=== PATIENT | female | born 1960 | race African-American/Black ===

== ENCOUNTER 2017-08-24 11:05 | Inpatient (IN) | payer MEDICARE, OTHER ==
[~2017-08-24] VITALS: Ht 165.1 cm; Wt 121.2 kg
[2017-08-24] MEDS ORDERED: MULT1TAB52 PO (12:46)
[2017-08-24] MEDS ORDERED: LORA1TAB PO (12:46)
[2017-08-24] MEDS ORDERED: OXYC5CAP PO (12:46)
[2017-08-24] MEDS ORDERED: BUDE10.2 IH (12:46)
[2017-08-24] MEDS ORDERED: CETI10TA16 PO (12:46)
[2017-08-24] MEDS ORDERED: ATOR40TA59 PO (12:46)
[2017-08-24] MEDS ORDERED: CHOL10003 PO (12:46)
[2017-08-24] MEDS ORDERED: ASPI-612 PO (12:46)
[2017-08-24] MEDS ORDERED: TRAZ-90 PO (12:46)
[2017-08-24] MEDS ORDERED: HYDR25TA9 PO (12:46)
[2017-08-24] MEDS ORDERED: LAMO100T PO (12:46)
[2017-08-24] MEDS ORDERED: AMLO10TA2 PO (12:46)
[2017-08-24] MEDS ORDERED: FLUT16SP21 NS (12:46)
[2017-08-24] MEDS ORDERED: VITA200C28 PO (12:46)
[2017-08-24] MEDS ORDERED: METO50TA6 PO (12:46)
[2017-08-24] MEDS ORDERED: TIZA4TAB PO (12:46)
[2017-08-24] MEDS ORDERED: METF850T2 PO (12:46)
[2017-08-24] MEDS ORDERED: LAMO200T2 PO (12:46)
[2017-08-24] MEDS ORDERED: POLY17PO5 PO (12:46)
[2017-08-24] MEDS ORDERED: GABA600T2 PO (14:07)
[2017-08-24] MEDS ORDERED: GABA-586 PO (14:08)
[2017-08-24] MEDS ORDERED: VENL75TA PO (14:08)
[2017-08-24] MEDS ORDERED: DOCU100C28 PO (14:09)
[2017-08-24] MEDS ORDERED: HYDR-971 PO (14:10)
[2017-08-24] MEDS ORDERED: LISI40TA PO (14:11)
[2017-08-24] MEDS ORDERED: NAPR-683 PO (14:12)
[2017-08-24] MEDS ORDERED: RIVA10TA PO (14:12)
[2017-08-24] MEDS ORDERED: BUPR150T8 PO (14:13)
[2017-08-24] MEDS ORDERED: SULF1TAB24 PO (14:15)
[2017-08-24] MEDS ORDERED: IPRA0.2S5 NEB (14:19)
[2017-08-24 14:41] VITALS: BP 135/83
[2017-08-24] MEDS ORDERED: POLYETHYLENE GLYCOL 3350 17 GM PACKET. PO PRN (16:15)
[2017-08-24] MEDS ORDERED: IPRATROPIUM BROMIDE 0.5 MG/2.5 ML NEBU. NEB PRN (16:15)
[2017-08-24] MEDS: buPROPion SR 150 MG TABLET.SA PO SCH (17:00)
[2017-08-24] MEDS: metFORMIN 850 MG TABLET PO SCH (17:05)
[2017-08-24] MEDS: LORazepam 1 MG TABLET PO PRN (17:06)
[2017-08-24] MEDS: NICOTINE 14MG PATCH. TD SCH (17:07)
[2017-08-24] MEDS: oxyCODONE IR 5 MG TABLET PO PRN (17:11)
[2017-08-24] MEDS: tiZANidine 4 MG TABLET. PO PRN (17:30)
[2017-08-24] MEDS: BUDESONIDE 0.5 MG/2 ML NEBU NEB SCH (20:00)
[2017-08-24] MEDS: ALBUTEROL SULFATE 2.5 MG/3 ML NEBU. NEB SCH (20:00)
[2017-08-24] MEDS: HYDROcodone/APAP 5/325MG 1 TAB TABLET PO PRN (20:14)
[2017-08-24] MEDS: SMZ/TMP 800/160MG TABLET. PO SCH (20:14)
[2017-08-24] MEDS: NAPROXEN 500 MG TABLET PO SCH (20:15)
[2017-08-24] MEDS: ATORVASTATIN CALCIUM 20 MG TABLET PO SCH (20:15)
[2017-08-24] MEDS: METOPROLOL TART IMMED RELEASE 50 MG TABLET PO SCH (20:16)
[2017-08-24 20:17] VITALS: BP 141/89
[2017-08-24] MEDS: GABAPENTIN 300 MG CAPSULE. PO SCH (20:17)
[2017-08-24] MEDS: lamoTRIgine 100 MG TABLET. PO SCH (20:17)
[2017-08-24] MEDS: traZODone 100 MG TABLET. PO PRN (20:18)
[2017-08-24] MEDS ORDERED: NON FORMULARY ITEM (Budesonide/Formoterol Fumarate (Symbicort 160-4.5 Mcg Inhaler) 1 PUFF) IH SCH (21:00)
[2017-08-25] MEDS ORDERED: TIOT18CA IH (04:52)
[2017-08-25 05:19] VITALS: BP 136/89
[2017-08-25] MEDS: oxyCODONE IR 5 MG TABLET PO PRN ×2 (05:20→14:10)
[2017-08-25 05:27] LABS: BASO % 1 % (0-3); EOS # 0.3 x10^3/uL (0.0-0.7); EOS % 5 % (0-3); HEMATOCRIT 29.6 % (36.0-47.0); HEMOGLOBIN 9.9 g/dL (12.0-15.5); LYMPH # 1.3 x10^3/uL (1.0-4.8); LYMPH % 17 % (24-48); MEAN CORPUSCULAR HEMOGLOBIN 32 pg (25-35); MEAN CORPUSCULAR HGB CONC 34 g/dL (31-37); MEAN CORPUSCULAR VOLUME 97 fL (79-100); MONO # 1.1 x10^3/uL (0.0-1.1); MONO % 14 % (0-9); NEUT # 4.8 x10^3uL (1.8-7.7); NEUT % 64 % (31-73); PLATELET COUNT 223 x10^3/uL (140-400); RED BLOOD COUNT 3.07 x10^6/uL (3.50-5.40); RED CELL DISTRIBUTION WIDTH 14.1 % (11.5-14.5); WHITE BLOOD COUNT 7.5 x10^3/uL (4.0-11.0)
[2017-08-25 05:36] LABS: ALBUMIN 2.7 g/dL (3.4-5.0); ALBUMIN/GLOBULIN RATIO 0.6 (1.0-1.7); CALCIUM 9.7 mg/dL (8.5-10.1); CREATININE 0.9 mg/dL (0.6-1.0); GFR 64.1; TOTAL BILIRUBIN 0.3 mg/dL (0.2-1.0); TOTAL PROTEIN 6.9 g/dL (6.4-8.2)
[2017-08-25] MEDS: ALBUTEROL SULFATE 2.5 MG/3 ML NEBU. NEB SCH ×3 (08:00→16:00)
[2017-08-25] MEDS: BUDESONIDE 0.5 MG/2 ML NEBU NEB SCH (08:00)
[2017-08-25 08:05] LABS: % ATYL 3 % (0-0); % BANDS 3 % (0-9); % BASOS 1 % (0-3); % EOS 5 % (0-5); % LYMPHS 15 % (24-48); % MONOS 11 % (0-10); % SEGS 62 % (35-66); PLT ESTIMATE ADEQUATE (ADEQUATE); TARGET CELLS FEW
[2017-08-25 08:06] LABS: TOXIC VACUOLATION PRESENT
[2017-08-25] MEDS: metFORMIN 850 MG TABLET PO SCH ×2 (08:32→17:23)
[2017-08-25] MEDS: buPROPion SR 150 MG TABLET.SA PO SCH ×2 (08:32→12:36)
[2017-08-25] MEDS: lamoTRIgine 100 MG TABLET. PO SCH ×3 (08:33→20:22)
[2017-08-25] MEDS: CETIRIZINE HCL 10 MG TABLET PO SCH (08:33)
[2017-08-25] MEDS: VITAMIN E. 400 UNIT CAPSULE. PO SCH (08:33)
[2017-08-25] MEDS: LISINOPRIL 20 MG TABLET PO SCH (08:33)
[2017-08-25] MEDS: NAPROXEN 500 MG TABLET PO SCH ×2 (08:33→20:25)
[2017-08-25] MEDS: METOPROLOL TART IMMED RELEASE 50 MG TABLET PO SCH ×2 (08:34→20:23)
[2017-08-25] MEDS: SMZ/TMP 800/160MG TABLET. PO SCH ×2 (08:34→20:22)
[2017-08-25] MEDS: amLODIPine BESYLATE 10 MG TABLET PO SCH (08:34)
[2017-08-25] MEDS: hydroCHLOROthiazide 25 MG TABLET PO SCH (08:34)
[2017-08-25] MEDS: CHOLECALCIFEROL (VITAMIN D3) 1,000 UNIT TABLET PO SCH (08:34)
[2017-08-25] MEDS: HYDROcodone/APAP 5/325MG 1 TAB TABLET PO PRN ×2 (08:34→18:27)
[2017-08-25] MEDS: MULTIVITAMIN with MINERAL TABLET. PO SCH (08:34)
[2017-08-25] MEDS: GABAPENTIN 300 MG CAPSULE. PO SCH ×3 (08:34→20:23)
[2017-08-25] MEDS: ASPIRIN ENTERIC COATED 81 MG TABLET.DR. PO SCH (08:34)
[2017-08-25] MEDS: VENLAFAXINE 75 MG TABLET. PO SCH (08:35)
[2017-08-25] MEDS: NICOTINE 14MG PATCH. TD SCH (08:35)
--- NOTE | 2017-08-25 12:56 | HP ---
ADMIT DATE: 08/25/2017 HISTORY OF PRESENT ILLNESS: The patient is a 57-year-old -Citizen Of The [place] female patient who apparently was admitted to [facility] with severe right knee pain and she apparently has osteoarthritis of bilateral knees. She underwent left total knee arthroplasty in 01/2017 and after failing conservative management as an outpatient, she presented on 08/16/2017 and underwent right total knee arthroplasty without complication. The patient was admitted to swing bed to continue the process of rehabilitation and continue pain management and DVT prophylaxis. On questioning her, she continued to obviously complain of pain in her knee and also her back. PAST MEDICAL HISTORY: Her past medical history is significant for type 2 diabetes mellitus, hypertension, obesity, posttraumatic stress disorder, borderline personality disorder, depression, anxiety, hyperlipidemia, insomnia, reactive airway disease, allergic rhinitis, chronic constipation, chronic pain syndrome. She has a history of kidney stones, history of uterine cancer, status post hysterectomy and radiation therapy. PAST SURGICAL HISTORY: Her past surgical history is significant for left total knee arthroplasty in 01/2017, lumbar decompressive surgery with instrumented fusion in 1996 with additional low back surgery in 2006, left knee arthroscopy in 2014, history of hysterectomy in 2015, and tonsillectomy in 1972. ALLERGIES: SHE IS ALLERGIC TO CODEINE, MORPHINE, METHADONE, CYCLOBENZAPRINE, SIMVASTATIN, AND ABILIFY. FAMILY HISTORY: Her father had obsessive compulsive disorder. Mother had coronary artery disease and myocardial infarction. SOCIAL HISTORY: The patient lives in [place]. She is disabled due to psychiatric condition. She has [id number] history of smoking, but quit smoking about a year ago. She rarely drinks alcohol and no illicit drug use. REVIEW OF SYSTEMS: As per history of present illness. MEDICATIONS: She is currently on following medications: She is on amlodipine 10 mg once a day, aspirin 81 mg once a day, atorvastatin calcium 40 mg at bedtime, Wellbutrin SR 150 mg twice a day, cetirizine 10 mg once a day, cholecalciferol 1000 international units once a day, Flonase 2 sprays to each nostril once a day, gabapentin 600 mg at bedtime, gabapentin 300 mg twice a day, hydrochlorothiazide 25 mg once a day, hydrocodone/apap 5/325 two tablets every 4 hours as needed, ipratropium bromide 0.2 mg in 1 mL solution by nebulizer 4 times a day, lamotrigine 100 mg with breakfast, lamotrigine 200 mg at bedtime, lisinopril 40 mg once a day, lorazepam 1 mg 4 times a day, metformin 850 mg p.o. b.i.d. with meals. She is on Metoprolol Tartrate 50 mg p.o. b.i.d., multivitamin 1 tablet once a day, naproxen 500 mg twice a day, oxycodone 5 mg every 4 hours as needed, polyethylene glycol 17 grams p.o. daily as needed for constipation. She is on Bactrim DS 1 tablet twice a day for 7 days for urinary tract infection, tiotropium bromide for Spiriva HandiHaler once a day, and tizanidine 4 mg twice a day, trazodone 100 mg p.o. at bedtime, venlafaxine 75 mg daily, vitamin E 200 units p.o. daily. PHYSICAL EXAMINATION: GENERAL: On examining her, she was sitting comfortably in her wheelchair, in no apparent respiratory distress, slightly pale, but no jaundice, cyanosis, or thyromegaly. No jugular venous distension. No limb edema. VITAL SIGNS: Her heart rate was 79, blood pressure was 136/89, temperature was 97.9, respiratory rate was 18, and oxygen saturation was 96% on room air. HEAD, EYES, EARS, NOSE AND THROAT: Showed normocephalic, atraumatic. NECK: Supple. HEART: Showed normal first and second heart sounds with no gallop, rub, or murmur. CHEST: Clear to auscultation. No crepitation or rhonchi. ABDOMEN: Distended, soft, nontender. No guarding or rigidity. No organomegaly. Hernial orifice is intact. Bowel sounds normal. NEUROLOGIC: She was awake, alert, responding appropriately. Cranial nerves are intact. EXTREMITIES: She moves extremities without difficulty; however, she is mostly bedbound, chair bound. She is able obviously to ambulate with a walker. She is here for pain management, DVT prophylaxis, and to start the process of physical and occupational therapy. LABORATORY DATA: Her lab work this morning showed a serum sodium 142, potassium 4, chloride 104, bicarbonate 32, anion gap of 6, BUN 18, creatinine 0.9, estimated GFR was 64 mL per minute. Her glucose 111, calcium was 9.7. Total bilirubin, AST, ALT, alkaline phosphatase were normal. Total protein was 6.9, albumin 2.7. Her white cell count was 7500, hemoglobin 10, hematocrit 30, MCV 97, and platelet count 223,000. IMPRESSION AND PLAN: 1. In summary, this is a 57-year-old -Citizen Of [place] female patient who is status post right total knee arthroplasty done successfully for severe primary osteoarthritis of the right knee. She is here for pain management, deep venous thrombosis prophylaxis, and start the process of rehabilitation. 2. Type 2 diabetes mellitus, seems to be well controlled on metformin. 3. Hypertension. This seems to be also well controlled on hydrochlorothiazide, amlodipine, and lisinopril. She apparently has also morbid obesity. 4. Multiple psychiatric conditions including posttraumatic stress disorder, borderline personality, chronic depression, and generalized anxiety for which she continues to be on venlafaxine and Wellbutrin as well as trazodone. We will obviously consult Physical and Occupational therapy and follow her closely and adjust the medication as needed. GEREMIAS SANZ MD DR: RAI/chon JOB#: [id number] / [id number]
[2017-08-25] MEDS: LORazepam 1 MG TABLET PO PRN ×2 (14:10→18:28)
[2017-08-25 15:01] VITALS: BP 141/82
[2017-08-25] MEDS: ATORVASTATIN CALCIUM 20 MG TABLET PO SCH (20:22)
[2017-08-25] MEDS: tiZANidine 4 MG TABLET. PO PRN (20:24)
[2017-08-25] MEDS: traZODone 100 MG TABLET. PO PRN (20:24)
[2017-08-25 21:08] VITALS: BP 126/84
[2017-08-26] MEDS ORDERED: IPRATRPIUM/ALBUTEROL 0.5/2.5MG 3 ML NEBU. NEB SCH (08:00)
[2017-08-26 08:39] VITALS: BP 112/70
[2017-08-26] MEDS: oxyCODONE IR 5 MG TABLET PO PRN ×2 (08:43→14:10)
[2017-08-26] MEDS: tiZANidine 4 MG TABLET. PO PRN (08:43)
[2017-08-26] MEDS: SPIRIVA INHALER INH SCH (09:00)
[2017-08-26] MEDS: ASPIRIN ENTERIC COATED 81 MG TABLET.DR. PO SCH (09:32)
[2017-08-26] MEDS: METOPROLOL TART IMMED RELEASE 50 MG TABLET PO SCH ×2 (09:32→20:55)
[2017-08-26] MEDS: lamoTRIgine 100 MG TABLET. PO SCH ×3 (09:34→20:55)
[2017-08-26] MEDS: SMZ/TMP 800/160MG TABLET. PO SCH ×2 (09:34→20:55)
[2017-08-26] MEDS: LISINOPRIL 20 MG TABLET PO SCH (09:34)
[2017-08-26] MEDS: CETIRIZINE HCL 10 MG TABLET PO SCH (09:34)
[2017-08-26] MEDS: GABAPENTIN 300 MG CAPSULE. PO SCH ×3 (09:35→20:56)
[2017-08-26] MEDS: amLODIPine BESYLATE 10 MG TABLET PO SCH (09:35)
[2017-08-26] MEDS: hydroCHLOROthiazide 25 MG TABLET PO SCH (09:36)
[2017-08-26] MEDS: VENLAFAXINE 75 MG TABLET. PO SCH (09:36)
[2017-08-26] MEDS: CHOLECALCIFEROL (VITAMIN D3) 1,000 UNIT TABLET PO SCH (09:36)
[2017-08-26] MEDS: metFORMIN 850 MG TABLET PO SCH ×2 (09:36→17:05)
[2017-08-26] MEDS: VITAMIN E. 400 UNIT CAPSULE. PO SCH (09:36)
[2017-08-26] MEDS: buPROPion SR 150 MG TABLET.SA PO SCH ×2 (09:36→12:08)
[2017-08-26] MEDS: MULTIVITAMIN with MINERAL TABLET. PO SCH (09:36)
[2017-08-26] MEDS: NAPROXEN 500 MG TABLET PO SCH ×2 (09:36→20:56)
[2017-08-26] MEDS: LORazepam 1 MG TABLET PO PRN ×2 (09:37→20:55)
[2017-08-26] MEDS: NICOTINE 14MG PATCH. TD SCH (09:41)
[2017-08-26] MEDS: HYDROcodone/APAP 5/325MG 1 TAB TABLET PO PRN ×2 (12:13→20:55)
--- NOTE | 2017-08-26 15:31 | RAD ---
CT of the abdomen and pelvis without contrast 08/26/2017 Indication: 57-year-old female with a sided abdominal pain. History of stones. Comparison study: None Technique: Multidetector CT imaging of the abdomen and pelvis was obtained without the administration of intravenous contrast. Findings: Visualized lung bases are grossly unremarkable. Liver and gallbladder are unremarkable in appearance. Spleen and adrenal glands and pancreas are grossly unremarkable in appearance. Left-sided nephrolithiasis is noted including a 11 mm nonobstructing stone in the inferior pole the left kidney. There is also a 11 mm ovoid stone in the mid left ureter. Despite the size of the stone no significant left hydronephrosis is identified. The more proximal ureter is only minimally more prominent than the distal left ureter. No right-sided nephrolithiasis or ureteral stone is identified. The bladder is unremarkable in appearance. There is no evidence of bowel obstruction. No evidence of acute inflammatory change involving the bowel is identified. There is a ventral hernia containing a loop nondilated transverse colon. No associated inflammatory changes are identified. The hernia defect measures approximately 3.5 cm x 5.5 cm. No free fluid or free air seen in the abdomen pelvis. Changes following lumbar fusion noted. Bone graft material is seen. No acute osseous changes are identified. Impression: 1. 11 mm stone in the mid left ureter. Minimal prominence of the more proximal left ureter is noted without significant hydronephrosis. There is also 11 mm nonobstructing stone in the inferior pole the left kidney. 2. Ventral hernia containing a loop of transverse colon. No CT evidence of obstruction or inflammatory changes appreciated. PQRS Compliance Statement: One or more of the following individualized dose reduction techniques were utilized for this examination: 1. Automated exposure control 2. Adjustment of the mA and/or kV according to patient size 3. Use of iterative reconstruction technique
[2017-08-26] MEDS: oxyCODONE ER 10 MG TAB.ER.12H PO SCH (15:42)
[2017-08-26 19:23] VITALS: BP 108/57
[2017-08-26] MEDS: ATORVASTATIN CALCIUM 20 MG TABLET PO SCH (20:56)
[2017-08-27] MEDS: metFORMIN 850 MG TABLET PO SCH ×3 (07:47→17:22)
[2017-08-27] MEDS: lamoTRIgine 100 MG TABLET. PO SCH ×3 (07:47→20:02)
[2017-08-27] MEDS: GABAPENTIN 300 MG CAPSULE. PO SCH ×3 (07:47→20:01)
[2017-08-27] MEDS: HYDROcodone/APAP 5/325MG 1 TAB TABLET PO PRN (07:49)
[2017-08-27] MEDS: SPIRIVA INHALER INH SCH (09:00)
[2017-08-27] MEDS: buPROPion SR 150 MG TABLET.SA PO SCH ×2 (09:14→12:58)
[2017-08-27] MEDS: VITAMIN E. 400 UNIT CAPSULE. PO SCH (09:14)
[2017-08-27] MEDS: SMZ/TMP 800/160MG TABLET. PO SCH ×2 (09:14→20:01)
[2017-08-27] MEDS: CHOLECALCIFEROL (VITAMIN D3) 1,000 UNIT TABLET PO SCH (09:14)
[2017-08-27] MEDS: oxyCODONE ER 10 MG TAB.ER.12H PO SCH ×2 (09:15→20:00)
[2017-08-27] MEDS: VENLAFAXINE 75 MG TABLET. PO SCH (09:15)
[2017-08-27] MEDS: LISINOPRIL 20 MG TABLET PO SCH (09:15)
[2017-08-27] MEDS: METOPROLOL TART IMMED RELEASE 50 MG TABLET PO SCH ×2 (09:15→20:02)
[2017-08-27] MEDS: NAPROXEN 500 MG TABLET PO SCH ×2 (09:15→20:01)
[2017-08-27] MEDS: CETIRIZINE HCL 10 MG TABLET PO SCH (09:15)
[2017-08-27] MEDS: ASPIRIN ENTERIC COATED 81 MG TABLET.DR. PO SCH (09:16)
[2017-08-27] MEDS: amLODIPine BESYLATE 10 MG TABLET PO SCH (09:16)
[2017-08-27] MEDS: MULTIVITAMIN with MINERAL TABLET. PO SCH (09:16)
[2017-08-27] MEDS: hydroCHLOROthiazide 25 MG TABLET PO SCH (09:16)
[2017-08-27] MEDS: NICOTINE 14MG PATCH. TD SCH (09:16)
[2017-08-27 10:49] VITALS: BP 128/68
[2017-08-27] MEDS: LORazepam 1 MG TABLET PO PRN ×2 (15:25→20:01)
[2017-08-27] MEDS: oxyCODONE IR 5 MG TABLET PO PRN (15:28)
[2017-08-27] MEDS: tiZANidine 4 MG TABLET. PO PRN (17:31)
[2017-08-27 19:52] VITALS: BP 129/76
[2017-08-27] MEDS: ATORVASTATIN CALCIUM 20 MG TABLET PO SCH (20:03)
[2017-08-27] MEDS: traZODone 100 MG TABLET. PO PRN (23:19)
[2017-08-28] MEDS: SPIRIVA INHALER INH SCH (08:11)
[2017-08-28] MEDS: NICOTINE 14MG PATCH. TD SCH (08:11)
[2017-08-28] MEDS: ASPIRIN ENTERIC COATED 81 MG TABLET.DR. PO SCH (08:12)
[2017-08-28] MEDS: hydroCHLOROthiazide 25 MG TABLET PO SCH (08:12)
[2017-08-28] MEDS: VITAMIN E. 400 UNIT CAPSULE. PO SCH (08:12)
[2017-08-28] MEDS: VENLAFAXINE 75 MG TABLET. PO SCH (08:12)
[2017-08-28] MEDS: MULTIVITAMIN with MINERAL TABLET. PO SCH (08:12)
[2017-08-28] MEDS: NAPROXEN 500 MG TABLET PO SCH ×2 (08:13→20:28)
[2017-08-28] MEDS: metFORMIN 850 MG TABLET PO SCH ×2 (08:13→17:00)
[2017-08-28] MEDS: lamoTRIgine 100 MG TABLET. PO SCH ×3 (08:14→20:28)
[2017-08-28] MEDS: oxyCODONE ER 10 MG TAB.ER.12H PO SCH ×2 (08:14→20:28)
[2017-08-28] MEDS: LISINOPRIL 20 MG TABLET PO SCH (08:14)
[2017-08-28] MEDS: METOPROLOL TART IMMED RELEASE 50 MG TABLET PO SCH ×2 (08:15→20:27)
[2017-08-28] MEDS: buPROPion SR 150 MG TABLET.SA PO SCH ×2 (08:15→11:37)
[2017-08-28] MEDS: CETIRIZINE HCL 10 MG TABLET PO SCH (08:15)
[2017-08-28] MEDS: GABAPENTIN 300 MG CAPSULE. PO SCH ×3 (08:15→20:27)
[2017-08-28] MEDS: amLODIPine BESYLATE 10 MG TABLET PO SCH (08:15)
[2017-08-28] MEDS: SMZ/TMP 800/160MG TABLET. PO SCH ×2 (08:15→20:28)
[2017-08-28] MEDS: CHOLECALCIFEROL (VITAMIN D3) 1,000 UNIT TABLET PO SCH (08:16)
[2017-08-28] MEDS: oxyCODONE IR 5 MG TABLET PO PRN ×2 (11:38→15:51)
[2017-08-28] MEDS: LORazepam 1 MG TABLET PO PRN ×2 (11:38→18:06)
[2017-08-28 15:25] VITALS: BP 116/66
[2017-08-28 19:10] VITALS: BP 116/74
[2017-08-28] MEDS: ATORVASTATIN CALCIUM 20 MG TABLET PO SCH (20:27)
[2017-08-29] MEDS: HYDROcodone/APAP 5/325MG 1 TAB TABLET PO PRN ×3 (00:11→18:17)
[2017-08-29] MEDS: traZODone 100 MG TABLET. PO PRN ×2 (00:11→21:47)
[2017-08-29] MEDS: GABAPENTIN 300 MG CAPSULE. PO SCH ×3 (07:27→20:34)
[2017-08-29 09:03] VITALS: BP 157/83
[2017-08-29] MEDS: SPIRIVA INHALER INH SCH (09:08)
[2017-08-29] MEDS: lamoTRIgine 100 MG TABLET. PO SCH ×3 (09:08→20:34)
[2017-08-29] MEDS: buPROPion SR 150 MG TABLET.SA PO SCH ×2 (09:09→11:46)
[2017-08-29] MEDS: ASPIRIN ENTERIC COATED 81 MG TABLET.DR. PO SCH (09:09)
[2017-08-29] MEDS: hydroCHLOROthiazide 25 MG TABLET PO SCH (09:09)
[2017-08-29] MEDS: metFORMIN 850 MG TABLET PO SCH ×2 (09:09→16:59)
[2017-08-29] MEDS: LISINOPRIL 20 MG TABLET PO SCH (09:09)
[2017-08-29] MEDS: NAPROXEN 500 MG TABLET PO SCH ×2 (09:10→20:33)
[2017-08-29] MEDS: oxyCODONE ER 10 MG TAB.ER.12H PO SCH ×2 (09:10→20:34)
[2017-08-29] MEDS: CHOLECALCIFEROL (VITAMIN D3) 1,000 UNIT TABLET PO SCH (09:10)
[2017-08-29] MEDS: CETIRIZINE HCL 10 MG TABLET PO SCH (09:10)
[2017-08-29] MEDS: amLODIPine BESYLATE 10 MG TABLET PO SCH (09:10)
[2017-08-29] MEDS: VITAMIN E. 400 UNIT CAPSULE. PO SCH (09:11)
[2017-08-29] MEDS: METOPROLOL TART IMMED RELEASE 50 MG TABLET PO SCH ×2 (09:11→20:34)
[2017-08-29] MEDS: SMZ/TMP 800/160MG TABLET. PO SCH ×2 (09:11→20:34)
[2017-08-29] MEDS: NICOTINE 14MG PATCH. TD SCH (09:11)
[2017-08-29] MEDS: MULTIVITAMIN with MINERAL TABLET. PO SCH (09:11)
[2017-08-29] MEDS: VENLAFAXINE 75 MG TABLET. PO SCH (09:11)
[2017-08-29] MEDS: LORazepam 1 MG TABLET PO PRN ×2 (11:46→18:16)
[2017-08-29] MEDS: oxyCODONE IR 5 MG TABLET PO PRN (15:02)
[2017-08-29 20:00] VITALS: BP 118/74
[2017-08-29] MEDS: ATORVASTATIN CALCIUM 20 MG TABLET PO SCH (20:33)
[2017-08-30] MEDS: metFORMIN 850 MG TABLET PO SCH ×2 (08:22→16:45)
[2017-08-30] MEDS: lamoTRIgine 100 MG TABLET. PO SCH ×3 (08:22→20:33)
[2017-08-30] MEDS: GABAPENTIN 300 MG CAPSULE. PO SCH ×3 (08:22→20:33)
[2017-08-30] MEDS: VITAMIN E. 400 UNIT CAPSULE. PO SCH (08:23)
[2017-08-30] MEDS: ASPIRIN ENTERIC COATED 81 MG TABLET.DR. PO SCH (08:23)
[2017-08-30] MEDS: VENLAFAXINE 75 MG TABLET. PO SCH (08:24)
[2017-08-30] MEDS: SMZ/TMP 800/160MG TABLET. PO SCH ×2 (08:24→20:33)
[2017-08-30] MEDS: hydroCHLOROthiazide 25 MG TABLET PO SCH (08:25)
[2017-08-30] MEDS: METOPROLOL TART IMMED RELEASE 50 MG TABLET PO SCH ×2 (08:25→20:33)
[2017-08-30] MEDS: NAPROXEN 500 MG TABLET PO SCH ×2 (08:26→20:33)
[2017-08-30] MEDS: amLODIPine BESYLATE 10 MG TABLET PO SCH (08:26)
[2017-08-30] MEDS: LISINOPRIL 20 MG TABLET PO SCH (08:27)
[2017-08-30] MEDS: oxyCODONE ER 10 MG TAB.ER.12H PO SCH ×2 (08:27→20:34)
[2017-08-30] MEDS: CHOLECALCIFEROL (VITAMIN D3) 1,000 UNIT TABLET PO SCH (08:28)
[2017-08-30] MEDS: buPROPion SR 150 MG TABLET.SA PO SCH ×2 (08:28→12:22)
[2017-08-30] MEDS: CETIRIZINE HCL 10 MG TABLET PO SCH (08:28)
[2017-08-30] MEDS: MULTIVITAMIN with MINERAL TABLET. PO SCH (08:28)
[2017-08-30] MEDS: tiZANidine 4 MG TABLET. PO PRN ×2 (08:29→20:37)
[2017-08-30] MEDS: NICOTINE 14MG PATCH. TD SCH (08:29)
[2017-08-30] MEDS: SPIRIVA INHALER INH SCH (08:33)
[2017-08-30] MEDS: FLUTICASONE 50MCG/NASAL SPRAY 16GM BOTTLE. NS PRN (08:33)
[2017-08-30] MEDS: LORazepam 1 MG TABLET PO PRN ×2 (08:47→15:17)
[2017-08-30] MEDS: oxyCODONE IR 5 MG TABLET PO PRN ×2 (08:47→16:47)
[2017-08-30] MEDS: HYDROcodone/APAP 5/325MG 1 TAB TABLET PO PRN (13:31)
[2017-08-30 14:59] VITALS: BP 111/76
[2017-08-30] MEDS: ATORVASTATIN CALCIUM 20 MG TABLET PO SCH (20:33)
[2017-08-30] MEDS: traZODone 100 MG TABLET. PO PRN (20:34)
[2017-08-31] MEDS: oxyCODONE IR 5 MG TABLET PO PRN ×3 (01:34→18:39)
[2017-08-31] MEDS: HYDROcodone/APAP 5/325MG 1 TAB TABLET PO PRN ×2 (06:37→21:24)
[2017-08-31 06:39] VITALS: BP 118/73
[2017-08-31 07:08] LABS: BASO % 0 % (0-3); EOS # 0.3 x10^3/uL (0.0-0.7); EOS % 6 % (0-3); HEMATOCRIT 28.2 % (36.0-47.0); HEMOGLOBIN 9.5 g/dL (12.0-15.5); LYMPH # 1.4 x10^3/uL (1.0-4.8); LYMPH % 23 % (24-48); MEAN CORPUSCULAR HEMOGLOBIN 33 pg (25-35); MEAN CORPUSCULAR HGB CONC 34 g/dL (31-37); MEAN CORPUSCULAR VOLUME 97 fL (79-100); MONO # 0.9 x10^3/uL (0.0-1.1); MONO % 15 % (0-9); NEUT # 3.3 x10^3uL (1.8-7.7); NEUT % 56 % (31-73); PLATELET COUNT 281 x10^3/uL (140-400); RED BLOOD COUNT 2.91 x10^6/uL (3.50-5.40); RED CELL DISTRIBUTION WIDTH 14.6 % (11.5-14.5); WHITE BLOOD COUNT 5.9 x10^3/uL (4.0-11.0)
[2017-08-31 07:20] LABS: ALBUMIN/GLOBULIN RATIO 0.8 (1.0-1.7); CALCIUM 9.7 mg/dL (8.5-10.1); CREATININE 1.2 mg/dL (0.6-1.0); GFR 55.6; MAGNESIUM 1.8 mg/dL (1.8-2.4); POTASSIUM 4.2 mmol/L (3.5-5.1); TOTAL BILIRUBIN 0.2 mg/dL (0.2-1.0); TOTAL PROTEIN 6.8 g/dL (6.4-8.2)
[2017-08-31] MEDS: GABAPENTIN 300 MG CAPSULE. PO SCH ×3 (07:27→20:14)
[2017-08-31] MEDS: metFORMIN 850 MG TABLET PO SCH ×3 (07:27→18:40)
[2017-08-31] MEDS: lamoTRIgine 100 MG TABLET. PO SCH ×3 (07:27→20:14)
[2017-08-31] MEDS: NICOTINE 14MG PATCH. TD SCH (07:28)
[2017-08-31] MEDS: CETIRIZINE HCL 10 MG TABLET PO SCH (07:28)
[2017-08-31] MEDS: SPIRIVA INHALER INH SCH (07:28)
[2017-08-31] MEDS: FLUTICASONE 50MCG/NASAL SPRAY 16GM BOTTLE. NS PRN (07:28)
[2017-08-31] MEDS: buPROPion SR 150 MG TABLET.SA PO SCH ×2 (07:28→12:00)
[2017-08-31] MEDS: CHOLECALCIFEROL (VITAMIN D3) 1,000 UNIT TABLET PO SCH (07:29)
[2017-08-31] MEDS: LISINOPRIL 20 MG TABLET PO SCH (07:29)
[2017-08-31] MEDS: MULTIVITAMIN with MINERAL TABLET. PO SCH (07:29)
[2017-08-31] MEDS: amLODIPine BESYLATE 10 MG TABLET PO SCH (07:30)
[2017-08-31] MEDS: METOPROLOL TART IMMED RELEASE 50 MG TABLET PO SCH ×2 (07:30→20:15)
[2017-08-31] MEDS: NAPROXEN 500 MG TABLET PO SCH ×2 (07:30→20:15)
[2017-08-31] MEDS: oxyCODONE ER 10 MG TAB.ER.12H PO SCH ×3 (07:30→20:14)
[2017-08-31] MEDS: VENLAFAXINE 75 MG TABLET. PO SCH (07:31)
[2017-08-31] MEDS: hydroCHLOROthiazide 25 MG TABLET PO SCH (07:31)
[2017-08-31] MEDS: VITAMIN E. 400 UNIT CAPSULE. PO SCH (07:31)
[2017-08-31] MEDS: ASPIRIN ENTERIC COATED 81 MG TABLET.DR. PO SCH (07:31)
[2017-08-31] MEDS: SMZ/TMP 800/160MG TABLET. PO SCH ×2 (07:31→20:15)
[2017-08-31] MEDS: LORazepam 1 MG TABLET PO PRN ×2 (09:15→20:15)
[2017-08-31 10:34] LABS: % BANDS 1 % (0-9); % BASOS 1 % (0-3); % EOS 2 % (0-5); % LYMPHS 31 % (24-48); % MONOS 5 % (0-10); % SEGS 60 % (35-66)
[2017-08-31 10:36] LABS: ANISOCYTOSIS SLIGHT; PLATELET CLUMP PRESENT; PLT ESTIMATE ADEQUATE (ADEQUATE); POLYCHROMASIA SLIGHT; STOMATOCYTES OCC; TOXIC GRANULATION SLIGHT
[2017-08-31 20:10] VITALS: BP 159/80
[2017-08-31] MEDS: tiZANidine 4 MG TABLET. PO PRN (20:13)
[2017-08-31] MEDS: ATORVASTATIN CALCIUM 20 MG TABLET PO SCH (20:14)
[2017-09-01] MEDS: traZODone 100 MG TABLET. PO PRN (00:29)
[2017-09-01] MEDS: oxyCODONE IR 5 MG TABLET PO PRN (00:32)
[2017-09-01 08:42] VITALS: BP 138/81
[2017-09-01] MEDS: ASPIRIN ENTERIC COATED 81 MG TABLET.DR. PO SCH (08:46)
[2017-09-01] MEDS: lamoTRIgine 100 MG TABLET. PO SCH ×3 (08:47→20:33)
[2017-09-01] MEDS: metFORMIN 850 MG TABLET PO SCH ×2 (08:47→17:09)
[2017-09-01] MEDS: GABAPENTIN 300 MG CAPSULE. PO SCH ×3 (08:47→20:33)
[2017-09-01] MEDS: VENLAFAXINE 75 MG TABLET. PO SCH (08:48)
[2017-09-01] MEDS: SPIRIVA INHALER INH SCH (08:48)
[2017-09-01] MEDS: VITAMIN E. 400 UNIT CAPSULE. PO SCH (08:48)
[2017-09-01] MEDS: METOPROLOL TART IMMED RELEASE 50 MG TABLET PO SCH ×2 (08:49→20:33)
[2017-09-01] MEDS: hydroCHLOROthiazide 25 MG TABLET PO SCH (08:49)
[2017-09-01] MEDS: NAPROXEN 500 MG TABLET PO SCH ×2 (08:50→20:32)
[2017-09-01] MEDS: amLODIPine BESYLATE 10 MG TABLET PO SCH (08:51)
[2017-09-01] MEDS: oxyCODONE ER 10 MG TAB.ER.12H PO SCH ×2 (08:51→20:32)
[2017-09-01] MEDS: CHOLECALCIFEROL (VITAMIN D3) 1,000 UNIT TABLET PO SCH (08:52)
[2017-09-01] MEDS: CETIRIZINE HCL 10 MG TABLET PO SCH (08:52)
[2017-09-01] MEDS: LISINOPRIL 20 MG TABLET PO SCH (08:52)
[2017-09-01] MEDS: MULTIVITAMIN with MINERAL TABLET. PO SCH (08:52)
[2017-09-01] MEDS: buPROPion SR 150 MG TABLET.SA PO SCH ×2 (08:52→12:34)
[2017-09-01] MEDS: LORazepam 1 MG TABLET PO PRN (08:53)
[2017-09-01] MEDS: NICOTINE 14MG PATCH. TD SCH (08:53)
[2017-09-01] MEDS: HYDROcodone/APAP 5/325MG 1 TAB TABLET PO PRN ×2 (12:35→17:10)
[2017-09-01 16:52] VITALS: BP 123/80
[2017-09-01] MEDS: ATORVASTATIN CALCIUM 20 MG TABLET PO SCH (20:33)
[2017-09-02] MEDS: traZODone 100 MG TABLET. PO PRN (00:43)
[2017-09-02] MEDS: oxyCODONE IR 5 MG TABLET PO PRN ×2 (01:34→12:01)
[2017-09-02] MEDS: LORazepam 1 MG TABLET PO PRN ×2 (01:34→10:52)
[2017-09-02 04:25] VITALS: BP 109/67
[2017-09-02] MEDS: hydroCHLOROthiazide 25 MG TABLET PO SCH (10:35)
[2017-09-02] MEDS: amLODIPine BESYLATE 10 MG TABLET PO SCH (10:36)
[2017-09-02] MEDS: buPROPion SR 150 MG TABLET.SA PO SCH ×2 (10:36→14:04)
[2017-09-02] MEDS: CHOLECALCIFEROL (VITAMIN D3) 1,000 UNIT TABLET PO SCH (10:36)
[2017-09-02] MEDS: VITAMIN E. 400 UNIT CAPSULE. PO SCH (10:36)
[2017-09-02] MEDS: MULTIVITAMIN with MINERAL TABLET. PO SCH (10:37)
[2017-09-02] MEDS: LISINOPRIL 20 MG TABLET PO SCH (10:37)
[2017-09-02] MEDS: oxyCODONE ER 10 MG TAB.ER.12H PO SCH (10:37)
[2017-09-02] MEDS: GABAPENTIN 300 MG CAPSULE. PO SCH ×3 (10:37→14:04)
[2017-09-02] MEDS: lamoTRIgine 100 MG TABLET. PO SCH ×2 (10:37→14:04)
[2017-09-02] MEDS: ASPIRIN ENTERIC COATED 81 MG TABLET.DR. PO SCH (10:37)
[2017-09-02] MEDS: CETIRIZINE HCL 10 MG TABLET PO SCH (10:37)
[2017-09-02 10:38] VITALS: BP 109/67
[2017-09-02] MEDS: metFORMIN 850 MG TABLET PO SCH (10:38)
[2017-09-02] MEDS: METOPROLOL TART IMMED RELEASE 50 MG TABLET PO SCH (10:38)
[2017-09-02] MEDS: NAPROXEN 500 MG TABLET PO SCH (10:38)
[2017-09-02] MEDS: VENLAFAXINE 75 MG TABLET. PO SCH (10:39)
[2017-09-02] MEDS: SPIRIVA INHALER INH SCH (10:40)
[2017-09-02] MEDS: NICOTINE 14MG PATCH. TD SCH (10:40)
[2017-09-02] MEDS: tiZANidine 4 MG TABLET. PO PRN (12:00)
--- NOTE | 2017-09-12 10:27 | PDOC3 ---
Discharge Summary Visit Information Date of Admission: Aug 24, 2017 Date of Discharge: Sep 02, 2017 Final Diagnosis this is a 57-year-old -[place] female patient who is status post right total knee arthroplasty done successfully for severe primary osteoarthritis of the right knee. She is here for pain management, deep venous thrombosis prophylaxis, and start the process of rehabilitation. 2. Type 2 diabetes mellitus, seems to be well controlled on metformin. 3. Hypertension. This seems to be also well controlled on hydrochlorothiazide, amlodipine, and lisinopril. She apparently has also morbid obesity. 4. Multiple psychiatric conditions including posttraumatic stress disorder, borderline personality, chronic depression, and generalized anxiety for which she continues to be on venlafaxine and Wellbutrin as well as trazodone. We will obviously consult Physical and Occupational therapy and follow her closely and adjust the medication as needed. 5 KIDNEY STONE- Problems: Brief Hospital Course Allergies Allergies Coded Allergies Type Severity Reaction Last Updated Verified aripiprazole Allergy Intermediate 08/29/17 Yes codeine Allergy Intermediate 08/29/17 Yes cyclobenzaprine Allergy Intermediate 08/29/17 Yes methadone Allergy Intermediate 08/29/17 Yes morphine Allergy Intermediate 08/29/17 Yes simvastatin Allergy Intermediate 08/29/17 Yes Brief Hospital Course Ms. Mcarthur is a 57 old [sex] who presented FOR REHAB AFTER A RIGHT TOTAL KNEE ARTHROPLASTY. SHE DID WEELL WITH REHAB AND WAS DISCHARGED ON Sep. Discharge Information Condition at Discharge: Improved Disposition/Orders: D/C to Home Dischare Medications Current Medications Amlodipine Besylate (Norvasc) 10 mg DAILY PO Last administered on 09/02/17 10: 36; Start 08/25/17 at 09:00; Stop 09/02/17 at 15:57; Status DC Aspirin (Aspirin Enteric Coated) 81 mg DAILY PO Last administered on 09/02/17 10:37; Start 08/25/17 at 09:00; Stop 09/02/17 at 15:57; Status DC Bupropion HCl (Wellbutrin Sr) 150 mg BID@0900,1200 PO Last administered on 09/02 14:04; Start 08/24/17 at 17:00; Stop 09/02/17 at 15:57; Status DC Cetirizine HCl (ZyrTEC) 10 mg DAILY PO Last administered on 09/02/17 10:37; Start 08/25/17 at 09:00; Stop 09/02/17 at 15:57; Status DC Vitamin D (Vitamin D3) 1,000 unit DAILY PO Last administered on 09/02/17 10:36 ; Start 08/25/17 at 09:00; Stop 09/02/17 at 15:57; Status DC Fluticasone Propionate (Flonase) 2 spray PRN DAILY PRN NS CG Last administered on 08/31/17 07:28; Start 08/24/17 at 16:15; Stop 09/02/17 at 15:57; Status DC Gabapentin (Neurontin) 300 mg BIDACBL PO Last administered on 09/02/17 14:04; Start 08/25/17 at 07:30; Stop 09/02/17 at 15:57; Status DC Hydrochlorothiazide (Hydrodiuril) 25 mg DAILY PO Last administered on 10:35; Start 08/25/17 at 09:00; Stop 09/02/17 at 15:57; Status DC Acetaminophen/ Hydrocodone Bitart (Lortab 5/325) 2 tab PRN Q4HRS PRN PO PAIN Last administered on 09/01/17 17:10; Start 08/24/17 at 16:15; Stop 09/02/17 at 15:57; Status DC Ipratropium [place] (Atrovent) 0.2 mg PRN QID PRN NEB WHEEZING; Start at 16:15; Stop 09/02/17 at 15:57; Status DC Lamotrigine (LaMICtal) 100 mg BIDWBKFT/CEE PO Last administered on 09/02/17 14 :04; Start 08/25/17 at 08:00; Stop 09/02/17 at 15:57; Status DC Lorazepam (Ativan) 1 mg PRN QID PRN PO ANXIETY Last administered on 09/02/17 10:52; Start 08/24/17 at 16:15; Stop 09/02/17 at 15:57; Status DC Metformin HCl (Glucophage) 850 mg BIDWMEALS PO Last administered on 09/02/17 10:38; Start 08/24/17 at 17:00; Stop 09/02/17 at 15:57; Status DC Metoprolol Tartrate (Lopressor) 50 mg BID PO Last administered on 09/02/17 10: 38; Start 08/24/17 at 21:00; Stop 09/02/17 at 15:57; Status DC Naproxen (Naprosyn) 500 mg BID PO Last administered on 09/02/17 10:38; Start 08/24/17 at 21:00; Stop 09/02/17 at 15:57; Status DC Polyethylene Glycol (miraLAX) 17 gm PRN DAILY PRN PO CONSTIPATION Last administered on 08/29/17 20:32; Start 08/24/17 at 16:15; Stop 09/02/17 at 15: 57; Status DC Trimethoprim/ Sulfamethoxazole (Bactrim Ds) 1 tab BID PO Last administered on 08/31/17 20:15; Start 08/24/17 at 21:00; Stop 08/31/17 at 20:59; Status DC Tizanidine HCl (Zanaflex) 4 mg PRN BID PRN PO MUSCLE SPASMS Last administered on 09/02/17 12:00; Start 08/24/17 at 16:15; Stop 09/02/17 at 15:57; Status DC Trazodone HCl (Desyrel) 100 mg PRN QHS PRN PO INSOMNIA Last administered on 00:43; Start 08/24/17 at 16:15; Stop 09/02/17 at 15:57; Status DC Venlafaxine HCl (Effexor) 75 mg DAILY PO Last administered on 09/02/17 10:39; Start 08/25/17 at 09:00; Stop 09/02/17 at 15:57; Status DC Atorvastatin Calcium (Lipitor) 40 mg QHS PO Last administered on 09/01/17 20: 33; Start 08/24/17 at 21:00; Stop 09/02/17 at 15:57; Status DC Non-Formulary Medication 1 puff BID IH ; Start 08/24/17 at 21:00; Stop at 21:00; Status DC Gabapentin (Neurontin) 600 mg QHS PO Last administered on 09/01/17 20:33; Start 08/24/17 at 21:00; Stop 09/02/17 at 15:57; Status DC Lamotrigine (LaMICtal) 200 mg QHS PO Last administered on 09/01/17 20:33; Start 08/24/17 at 21:00; Stop 09/02/17 at 15:57; Status DC Lisinopril (Prinivil) 40 mg DAILY PO Last administered on 09/02/17 10:37; Start 08/25/17 at 09:00; Stop 09/02/17 at 15:57; Status DC Multivitamins/ Calcium (Thera-M Plus) 1 tab DAILY PO Last administered on 10:37; Start 08/25/17 at 09:00; Stop 09/02/17 at 15:57; Status DC Oxycodone HCl (Roxicodone) 5 mg PRN Q4HRS PRN PO PAIN Last administered on 09/02 12:01; Start 08/24/17 at 17:00; Stop 09/02/17 at 15:57; Status DC Vitamin E 400 unit DAILY PO Last administered on 09/02/17 10:36; Start at 09:00; Stop 09/02/17 at 15:57; Status DC Nicotine (Nicoderm Cq 14mg) 1 patch DAILY TD Last administered on 09/02/17 10: 40; Start 08/24/17 at 17:00; Stop 09/02/17 at 15:57; Status DC Albuterol Sulfate (Ventolin) 2.5 mg RTQID NEB ; Start 08/24/17 at 20:00; Stop 08/25/17 at 19:39; Status DC Budesonide (Pulmicort) 0.5 mg RTBID NEB ; Start 08/24/17 at 20:00; Stop at 19:39; Status DC Albuterol/ Ipratropium (Duoneb) 3 ml RTQID NEB ; Start 08/26/17 at 08:00; Status Cancel Non-Formulary Medication 1 ea DAILY INH Last administered on 09/02/17 10:40; Start 08/26/17 at 09:00; Stop 09/02/17 at 15:57; Status DC Oxycodone HCl (OxyCONTIN) 10 mg Q12HR PO Last administered on 08/31/17 07:30 ; Start 11/24/17 at 15:30; Stop 08/31/17 at 19:34; Status DC Oxycodone HCl (OxyCONTIN) 10 mg Q12HR PO Last administered on 09/02/17t 10:37; Start 08/31/17 at 21:00; Stop 09/02/17 at 15:57; Status DC Active Scripts Active Reported Spiriva (Tiotropium [place]) 18 Mcg Cap.w.dev 18 Mcg IH DAILY PATIENT PROVIDED OWN HOME MED FOR USE IN HOSPITAL LAST DOSE GIVEN: DATE: TODAY TIME: AM NEXT DOSE DUE: DATE: TOMORROW TIME: AM Ipratropium [place] 0.2 Mg/1 Ml Solution 1 Vial NEB QID PRN NEXT DOSE DUE: DATE: JANUARY TAKE TIME: IF AND WHEN NEEDED Bactrim Ds Tablet (Sulfamethoxazole/Trimethoprim) 1 Each Tablet 1 Tab PO BID 7 Days Wellbutrin Sr (Bupropion Hcl) 150 Mg Tablet.er 1 Tab PO BID LAST DOSE GIVEN: DATE: TIME: AM NEXT DOSE DUE: DATE: TODAY TIME: PM Naprosyn (Naproxen) 500 Mg Tablet 1 Tab PO BID LAST DOSE GIVEN: DATE: TODAY TIME: AM NEXT DOSE DUE: DATE: TODAY TIME: PM Lisinopril 40 Mg Tablet 40 Mg PO DAILY LAST DOSE GIVEN: DATE: TODAY TIME: AM NEXT DOSE DUE: DATE: TOMORROW TIME: AM [place] 5-325 Tablet (Hydrocodone Bit/Acetaminophen) 1 Each Tablet 2 Tab PO Q4HRS PRN NEXT DOSE DUE: DATE: January TIME: IF AND WHEN NEEDED Gabapentin 300 Mg Capsule 300 Mg PO BIDACBL LAST DOSE GIVEN: DATE: TODAY TIME: WITH LUNCH NEXT DOSE DUE: DATE: TOMORROW TIME: WITH BREAKFAST Venlafaxine Hcl 75 Mg Tablet 1 Tab PO DAILY LAST DOSE GIVEN: DATE: TODAY TIME: AM NEXT DOSE DUE: DATE: TOMORROW TIME: AM Gabapentin 600 Mg Tablet 600 Mg PO HS LAST DOSE GIVEN: DATE: YESTERDAY TIME: AT BEDTIME NEXT DOSE DUE: DATE: TODAY TIME: AT BEDTIME Lorazepam 1 Mg Tablet 1 Tab PO QIDPRN PRN LAST DOSE GIVEN: DATE: TODAY TIME: 12 NOON NEXT DOSE DUE: DATE: TODAY TIME: AFTER 6 PM IF NEEDED Oxycodone Hcl 5 Mg Capsule 1 Cap PO PRN Q4HRS PRN LAST DOSE GIVEN: DATE: TODAY TIME: 12 NOON NEXT DOSE DUE: DATE: TODAY TIME: AFTER 4 PM IF NEEDED Trazodone Hcl 100 Mg Tablet 1 Tab PO QHS PRN LAST DOSE GIVEN: DATE: YES TIME: AT BEDTIME NEXT DOSE DUE: DATE: TIME: AT BEDTIME IF NEEDED Tizanidine Hcl (Tizanidine HCl) 4 Mg Tablet 4 Mg PO BID PRN LAST DOSE GIVEN: DATE: TIME: 12 NOON NEXT DOSE DUE: DATE: TIME: AT BEDTIME IF NEEDED Metformin Hcl 850 Mg Tablet 1 Tab PO BIDWMEALS LAST DOSE GIVEN: DATE: TIME: WITH BREAKFAST NEXT DOSE DUE: DATE: TIME: WITH DINNER Lamotrigine 200 Mg Tablet 1 Tab PO HS LAST DOSE GIVEN: DATE: TIME: AT BEDTIME NEXT DOSE DUE: DATE: TIME: AT BEDTIME Lamotrigine 100 Mg Tablet 1 Tab PO BIDWBK/ LAST DOSE GIVEN: DATE: TIME: WITH LUNCH NEXT DOSE DUE: DATE: TIME: WITH BREAKFAST Hydrochlorothiazide Tablet (Hydrochlorothiazide) 25 Mg Tablet 1 Tab PO DAILY LAST DOSE GIVEN: DATE: TIME: AM NEXT DOSE DUE: DATE: TIME: AM Amlodipine Besylate 10 Mg Tablet 1 Tab PO DAILY LAST DOSE GIVEN: DATE: TIME: AM NEXT DOSE DUE: DATE: TIME: AM Vitamin E (Vitamin E (Dl,Tocopheryl Acet)) 200 Unit Capsule 200 Unit PO DAILY LAST DOSE GIVEN: DATE: TIME: AM NEXT DOSE DUE: DATE: TIME: AM Vitamin D3 (Cholecalciferol (Vitamin D3)) 1,000 Unit Tablet 1 Tab PO DAILY LAST DOSE GIVEN: DATE: TIME: AM NEXT DOSE DUE: DATE: ORR TIME: AM Miralax (Polyethylene Glycol 3350) 17 Gm Powd.pack 1 Packet PO DAILY PRN NEXT DOSE DUE: DATE: January TIME: IF AND WHEN NEEDED Multivitamins (Multivitamin) 1 Each Tablet 1 Tab PO DAILY LAST DOSE GIVEN: DATE: TIME: AM NEXT DOSE DUE: DATE: ORR TIME: AM Metoprolol Tartrate 50 Mg Tablet 1 Tab PO BID LAST DOSE GIVEN: DATE: TIME: AM NEXT DOSE DUE: DATE: TIME: PM Fluticasone Propionate Nasal [place] (Fluticasone Propionate) 16 Gm [place].susp 2 Spr NS DAILY PRN LAST DOSE GIVEN: DATE: TODAY TIME: AM NEXT DOSE DUE: DATE: TOMORROW TIME: AM Cetirizine Hcl 10 Mg Tablet 1 Tab PO DAILY LAST DOSE GIVEN: DATE: TODAY TIME: AM NEXT DOSE DUE: DATE: TOMORROW TIME: AM Atorvastatin Calcium 40 Mg Tablet 1 Tab PO QHS LAST DOSE GIVEN: DATE: YESTERDAY TIME: AT BEDTIME NEXT DOSE DUE: DATE: TODAY TIME: AT BEDTIME Aspirin Ec (Aspirin) 81 Mg Tablet.dr 1 Tab PO DAILY LAST DOSE GIVEN: DATE: TODAY TIME: AM NEXT DOSE DUE: DATE: TOMORROW TIME: AM Patient Instructions Patient Instuctions [facility]. ALAN RUSH DO Sep 12, 2017 10:27
== END 2017-09-02 15:20 | disposition home health service (06) | DRG 556 ==
LOC: 1 SOUTH 13:06
PROVIDERS: ADMIT Internal Medicine; ATTEND Internal Medicine
DX: M25.561 Pain in right knee (principal); E66.01 Morbid (severe) obesity due to excess calories; Z68.41 Body mass index [BMI] 40.0-44.9, adult; E11.9 Type 2 diabetes mellitus without complications; E78.5 Hyperlipidemia, unspecified; F32.9 Major depressive disorder, single episode, unspecified; F41.1 Generalized anxiety disorder; F43.10 Post-traumatic stress disorder, unspecified; F60.3 Borderline personality disorder; G89.4 Chronic pain syndrome; Z96.653 Presence of artificial knee joint, bilateral; G47.00 Insomnia, unspecified; J45.909 Unspecified asthma, uncomplicated; K59.09 Other constipation; I10 Essential (primary) hypertension; Z82.49 Family history of ischemic heart disease and other diseases of the circulatory system; Z85.42 Personal history of malignant neoplasm of other parts of uterus; Z87.442 Personal history of urinary calculi; Z87.891 Personal history of nicotine dependence; Z90.710 Acquired absence of both cervix and uterus; Z88.5 Allergy status to narcotic agent; Z88.8 Allergy status to other drugs, medicaments and biological substances; Z84.89 Family history of other specified conditions; Z92.3 Personal history of irradiation
CPT/HCPCS: 36415; 74176; 80053; 82947; 83735; 85007; 85025; 97110; 97530; 97535

== ENCOUNTER 2019-12-26 16:29 | Emergency (ER) | payer MEDICARE, OTHER ==
[~2019-12-26] VITALS: Ht 170.2 cm; Wt 110.5 kg
[~2019-12-26 16:29] MED LIST: AMLO10TA8 PO; ASPI-612 PO; ATOR40TA59 PO; BUDE10.2 IH; BUPR150T8 PO; CETI10TA16 PO; CHOL10003 PO; DOCU100C28 PO; FLUT16SP21 NS; GABA-586 PO; GABA600T7 PO; HYDR-2145 PO; HYDR-3165 PO; IPRA0.2S5 NEB; LAMO100T8 PO; LAMO200T6 PO; LISI40TA PO; LORA-254 PO; METF850T8 PO; METO50TA6 PO; MULT1TAB52 PO; NAPR-683 PO; OXYC5CAP PO; POLY17PO5 PO; RIVA10TA PO; SULF1TAB24 PO; TIOT18CA IH; TIZA4TAB2 PO; TRAZ-125 PO; VENL75TA PO; VITA200C28 PO
[2019-12-26] MEDS ORDERED: IV NORMAL SALINE 1,000ML 1,000 ML IV ONE (17:00)
[2019-12-26] MEDS ORDERED: CONTRAST GIVEN MC PRN (17:00)
--- NOTE | 2019-12-26 17:16 | PHYS DOC ---
Past History Past Medical History: Anxiety, COPD, Depression, Diabetes, Endometriosis, GERD, High Cholesterol, Hypertension, Kidney Stones, Pneumonia, UTI Additional Past Medical Histor: PTSD Past Surgical History: Hysterectomy, Knee Replacement (bilateral) Additional Past Surgical Histo: Left shoulder surgery Smoking: Cigarettes Alcohol Use: None Drug Use: Marijuana Adult General Chief Complaint Chief Complaint: FEVER HPI HPI 59-year-old female presents via EMS from [facility] with concern for exposure to COVID 19. Patient was admitted to [facility] in [place] on 12/12/19 for reported pneumonia. Patient reports she has been on antibiotics since and reports symptoms have not improved. Reports night sweats, generalized malaise, weakness, body aches, and subjective fevers. Reports shortness of breath has worsened recently. [facility] [place] [facility] EMS reports low O2 sats down to 86% on RA. EMS reports improvement to 98% on 3L NC. Patient does report history of COPD which continues to smoke. Patient does report history of recent right shoulder surgery which was done at [facility] in Nov 2019. Denies recent travel. Denies trauma. Reports some mild swelling to legs. Denies history of DVT/PE. [facility] Department aware of situation and requested COVID-19 testing. Review of Systems Review of Systems Constitutional: Reports subjective fever, chills, body aches, and malaise Eyes: Denies redness or eye pain HENT: Denies nasal congestion or sore throat Respiratory: Reports cough and shortness of breath Cardiovascular: Reports pleuritic chest pain; denies palpitations GI: Denies abdominal pain, nausea, or vomiting : Denies dysuria or hematuria Musculoskeletal: Denies back pain or joint pain Integument: Denies rash or skin lesions Neurologic: Denies headache, focal weakness or sensory changes Complete systems were reviewed and found to be within normal limits, except as documented in this note. Current Medications Current Medications Current Medications Medications (Trade) Dose Ordered Sig/Yan Start Time Stop Time Status Last Admin Dose Admin Info (Do NOT chart on this entry -- for MONITORING) 1 each PRN DAILY PRN 12/26/19 17:00 12/28/19 16:59 Iohexol (Omnipaque 350 Mg/ml) 100 ml 1X ONCE 12/26/19 17:30 12/26/19 17:31 Sodium Chloride 1,000 ml @ 1,000 mls/hr 1X ONCE 12/26/19 17:00 12/26/19 17:59 Allergies Allergies Allergies Coded Allergies Type Severity Reaction Last Updated Verified aripiprazole Allergy Intermediate 08/29/17 Yes codeine Allergy Intermediate 08/29/17 Yes cyclobenzaprine Allergy Intermediate 08/29/17 Yes methadone Allergy Intermediate 08/29/17 Yes morphine Allergy Intermediate 08/29/17 Yes simvastatin Allergy Intermediate 08/29/17 Yes Physical Exam Physical Exam Constitutional: Well developed, well nourished, no acute distress, non-toxic appearance, obese HENT: Normocephalic, atraumatic, oropharynx moist Eyes: Conjunctiva normal, no discharge Neck: Normal range of motion, no tenderness, supple Cardiovascular: Heart rate normal, regular rhythm Lungs & Thorax: Bilateral breath sounds diminished at bases, no wheezing, no rales, no increased work of breathing Abdomen: Soft, no tenderness Skin: Warm, dry, no erythema, no rash Back: No tenderness, no CVA tenderness Extremities: No tenderness, ROM intact, trace bilateral lower extremity edema Neurologic: Alert and oriented X 3, normal speech, no focal deficits noted Psychologic: Affect normal, judgment normal EKG EKG [] Radiology/Procedures Radiology/Procedures [] Course & Med Decision Making Course & Med Decision Making Pertinent Labs and Imaging studies reviewed. (See chart for details) Patient presents with history of viral type symptoms with history of recent shoulder surgery and recent hospitalization for pneumonia with reported confirmed exposure to individual (RN at [facility]) who tested positive for COVID-19. Patient hypoxic upon EMS arrival. Improved with supplemental O2. No significant work of breathing noted upon arrival with supplemental O2. Labs obtained and pending at this time. Influenza negative. WBC negative. COVID-[address] Mcknight (SITE PROJECT MANAGER) who is in agreement with COVID-19 testing. CTA chest also pending. IVF hydration given. Patient requiring transfer for isolation admission for further evaluation and treatment. Discussed with Dr. Hinson (hospitalist) at [facility] who is in agreement with admission. Discussed findings and plan with patient, who acknowledges understanding and agreement. Sign out given to Dr. White for follow-up on labs and CT imaging. To limit exposure Dr. White to help facilitate transfer of patient and follow-up on labs /imaging only. Of note: Full PPE was worn in patient's room which was a negative pressure room, including N95 mask, face shield, barrier gown, two sets of disposable gloves, and disposable booties. A disposable stethoscope was also utilized and left for use in the room. Dragon Disclaimer Dragon Disclaimer This electronic medical record was generated, in whole or in part, using a voice recognition dictation system. Departure Departure: Impression: Primary Impression: Hypoxia Additional Impressions: Exposure to SARS-associated coronavirus History of pneumonia Disposition: 05 TRANSFER OTHER ([facility]) Condition: GUARDED Referrals: JUNIOR TIJERINA (PCP) Critical Care Time Critical care time was 30 minutes which includes time at bedside, spent in discussion of patient's care with specialists and/or family members, with interpretation of laboratory and/or radiological studies and is exclusive of procedures. Problem Qualifiers FELICE HOBSON DO Dec 26, 2019 17:16
[2019-12-26] MEDS ORDERED: IOHEXOL 350 MG/ML 100 ML VIAL. IV ONE (17:30)
[2019-12-26 17:33] VITALS: BP 118/70
[2019-12-26 17:40] LABS: BASO % 1 % (0-3); EOS # 0.2 x10^3/uL (0.0-0.7); EOS % 2 % (0-3); HEMATOCRIT 33.8 % (36.0-47.0); HEMOGLOBIN 10.8 g/dL (12.0-15.5); LYMPH # 1.9 x10^3/uL (1.0-4.8); LYMPH % 27 % (24-48); MEAN CORPUSCULAR HEMOGLOBIN 30 pg (25-35); MEAN CORPUSCULAR HGB CONC 32 g/dL (31-37); MEAN CORPUSCULAR VOLUME 94 fL (79-100); MONO # 1.1 x10^3/uL (0.0-1.1); MONO % 16 % (0-9); NEUT # 3.6 x10^3uL (1.8-7.7); NEUT % 54 % (31-73); PLATELET COUNT 341 x10^3/uL (140-400); RED CELL DISTRIBUTION WIDTH 14.8 % (11.5-14.5); WHITE BLOOD COUNT 6.8 x10^3/uL (4.0-11.0)
[2019-12-26 17:47] LABS: CALCIUM 9.8 mg/dL (8.5-10.1); CREATININE 0.9 mg/dL (0.6-1.0); POTASSIUM 3.9 mmol/L (3.5-5.1)
[2019-12-26 17:56] LABS: INFLUENZA A PATIENT NEGATIVE (NEGATIVE); INFLUENZA B PATIENT NEGATIVE (NEGATIVE)
[2019-12-26 18:03] LABS: ALBUMIN 2.4 g/dL (3.4-5.0); ALBUMIN/GLOBULIN RATIO 0.4 (1.0-1.7); TOTAL BILIRUBIN 0.2 mg/dL (0.2-1.0); TOTAL PROTEIN 7.8 g/dL (6.4-8.2)
[2019-12-26] MEDS ORDERED: IV NORMAL SALINE 50ML 50 ML ONE (18:10)
[2019-12-26] MEDS ORDERED: PIPERACILLIN/TAZOBACTAM 4.5 GM VIAL IV ONE (18:11)
[2019-12-26] MEDS ORDERED: PIPERACILLIN/TAZOBACTAM 4.5 GM in IV NORMAL SALINE 50ML 50 ML IV ONE (18:30)
--- NOTE | 2019-12-26 18:36 | RAD ---
Study: CT CHEST WITH CONTRAST - PULMONARY ANGIOGRAM History: Shortness of air. Provided history of recent surgery. Pneumonia. Comparison: None. Technique: Helical CT of the chest performed after the administration of 75 cc Omnipaque 350 intravenous contrast and timed for angiographic evaluation of the pulmonary arteries per PE protocol. Coronal and sagittal 3D MIP reformations were obtained. One or more of the following individualized dose reduction techniques were utilized for this examination: 1. Automated exposure control 2. Adjustment of the mA and/or kV according to patient size 3. Use of iterative reconstruction technique. Findings: Pulmonary Arteries: Degraded evaluation for pulmonary emboli given a combination of bolus timing and patient body habitus. No main or lobar pulmonary embolism is identified. The adequately assessed segmental vessels appear patent. Limited evaluation of the subsegmental pulmonary arteries. Heart/Systemic Vasculature: No aortic aneurysm or dissection. Scattered calcific atherosclerosis to include involvement of the coronary arteries. The visualized great vessels are patent.. Mild reflux of injected contrast into the hepatic veins but no interventricular septal deviation that would suggest overt right heart strain. Mediastinum: Small volume pericardial fluid. No pathologically enlarged hilar lymph node is well identified. Mild prominence of a few mediastinal lymph nodes such as anterior to the dilia on image 49 series 4 measuring approximate 1.2 cm short axis. Lungs: Moderate volume pleural effusion on the right with fluid seen in the major fissure and to a lesser degree within the minor fissure. There appears to be a degree of loculation. No pleural fluid appreciated on the left. Right lower lobe more so than right middle lobe atelectasis. Mild right upper lobe atelectasis. Generalized haziness of the aerated right lung. No localized infiltrate throughout the left lung and normally minimal volume loss. Neck/Axilla/Body Wall: Scattered axillary lymph nodes do not meet pathologic criteria based on size all measuring less than a centimeter short axis. Unremarkable thyroid Upper Abdomen: Probable hepatic steatosis. It does not appear that there is fluid below the right hemidiaphragm Bones: Findings typical of diffuse idiopathic skeletal hyperostosis. Multifactorial degenerative changes. Miscellaneous: None. IMPRESSION: 1. Limited study for pulmonary emboli due to a combination of bolus timing and patient body habitus. No main or lobar pulmonary embolism. The adequately assessed segmental pulmonary arteries appear patent as well. 2. Moderate volume pleural effusion on the right with some fluid in the major and minor fissures and a possible degree of loculation. Associated atelectatic change greatest at the right lower and middle lobes. No localized infiltrate seen throughout the adequately aerated right lung but a superimposed infectious process is difficult to fully exclude. No concerning abnormality throughout the left hemithorax. Electronically signed by: SHELBY PRASAD MD (12/26/2019 6:33 PM) [id number]
[2019-12-26 19:07] LABS: BILIRUBIN,URINE NEG (NEG); CLARITY,URINE HAZY; COLOR,URINE YELLOW; GLUCOSE,URINE NEG (NEG); NITRITE,URINE NEG (NEG); RBC,URINE 0 /HPF (0-2); UROBILINOGEN,URINE 0.2 mg/dL (0.2 mg/dL)
[2019-12-26 19:08] LABS: BACTERIA,URINE 0 /HPF (0-FEW); SQUAMOUS EPITHELIAL CELL,UR FEW /LPF
== END 2019-12-26 19:58 | disposition short-term general hospital (02) ==
LOC: ER 16:29
DX: R09.02 Hypoxemia (principal); B97.21 SARS-associated coronavirus as the cause of diseases classified elsewhere; F41.9 Anxiety disorder, unspecified; J44.9 Chronic obstructive pulmonary disease, unspecified; E11.9 Type 2 diabetes mellitus without complications; F32.9 Major depressive disorder, single episode, unspecified; E78.00 Pure hypercholesterolemia, unspecified; F17.210 Nicotine dependence, cigarettes, uncomplicated; F43.10 Post-traumatic stress disorder, unspecified; K21.9 Gastro-esophageal reflux disease without esophagitis; I10 Essential (primary) hypertension; Z87.442 Personal history of urinary calculi; Z87.440 Personal history of urinary (tract) infections; Z88.5 Allergy status to narcotic agent; Z88.8 Allergy status to other drugs, medicaments and biological substances
CPT/HCPCS: 36415; 71275; 80053; 81001; 82553; 83605; 83880; 84484; 85025; 85610; 85730; 87040; 87635; 87804; 96365; 99285; J2543; Q9967; J7030